=== PATIENT | male | born 1980 | race Caucasian/White ===

== ENCOUNTER 2018-12-30 15:26 | Emergency (ER) | payer OTHER ==
--- NOTE | 2018-12-30 18:14 | EDPHY ---
H & P Stated Complaint: cough/fever body aches Time Seen by Provider: 12/30/18 18:04 - Personal History Current Tetanus Diphtheria and Acellular Pertussis (TDAP): No - Medical/Surgical History Hx Asthma: No Hx Chronic Respiratory Disease: No Hx Diabetes: No Hx Cardiac Disease: No Hx Renal Disease: Yes Hx Cirrhosis: No Hx Alcoholism: No Hx HIV/AIDS: No Hx Splenectomy or Spleen Trauma: No Other PMH: appy l kidney removed - Social History Smoking Status: Current every day smoker Constitutional: Initial Vital Signs Temperature (C) 37.9 C 12/30/18 16:04 Heart Rate 112 H 12/30/18 16:04 Respiratory Rate 18 12/30/18 16:04 Blood Pressure 116/75 12/30/18 16:04 O2 Sat (%) 94 12/30/18 16:04 O2 Delivery Mode Room Air Allergies/Adverse Reactions: No Known Allergies Allergy (Unverified 12/30/18 16:03) Home Medications: Medication Instructions Recorded Ibuprofen [Motrin] 800 mg PO Q8 #20 tab 12/30/18 Oseltamivir Phosphate [Tamiflu 75 75 mg PO BID #10 cap 12/30/18 mg (*)] Medical Decision Making ED Course/Re-evaluation: CHIEF COMPLAINT: Flu-like symptoms HISTORY OF PRESENT ILLNESS: The patient is a 38 y/o male with a history of an appendectomy and left nephrectomy complaining of fever, cough, and body aches onset 2 days ago. Due to these symptoms he decided to present to the emergency department. No headache , lightheadedness, chest pain, heart palpitations, cough, abdominal pain, urinary or bowel complaints, numbness, paresthesias. REVIEW OF SYSTEMS: A 10 point review of systems was performed and is negative with the exception of the elements mentioned in the history of present illness. PHYSICAL EXAM: HR, BP, O2 Sat, RR. Temp noted General Appearance: Alert, well hydrated, appropriate, and non-toxic appearing. Head: Atraumatic without scalp tenderness or obvious injury Eyes: Pupils equal, round, reactive to light and accommodation, EOMI, no trauma , no injection. Ears: Clear bilaterally, no perforation, normal landmarks Nose: Atraumatic, no rhinorrhea, clear. Throat: There is no erythema or exudates, no lesions, normal tonsils, mucus membranes moist. Neck: Supple, 2+ carotid upstroke, nontender, no lymphadenopathy. Respiratory: No retractions, no distress, no wheezes, and no accessory muscle use. Lungs are clear to auscultation bilaterally. Cardiovascular: Regular rate and rhythm, no murmurs, rubs, or gallops. Bilateral carotid, radial, dorsalis pedis, and posterior tibial pulses intact. Good capillary refill all extremities. Gastrointestinal: Abdomen is soft, nontender, non-distended, no masses, no rebound, no guarding, no peritoneal signs. Musculoskeletal: Normal active ROM of all extremities, atraumatic. Neurological: Alert, appropriate, and interactive. The patient has normal DTRs and non-focal cranial nerves, motor, sensory, and cerebellar exam. Skin: No rashes, good turgor, no nodules on palpation. Past medical history: Denies Past surgical history: Appendectomy, left nephrectomy Family history: Denies Social history: Transient, single, not employed DIAGNOSTICS/PROCEDURES/CRITICAL CARE TIME: Not indicated. DIFFERENTIAL DIAGNOSIS: The differential diagnosis for the patient's fever included but was not limited to pneumonia, urinary tract infection, viral syndrome, meningitis, and sepsis. MEDICAL DECISION MAKING: The patient is a 38 y/o male with a history of an appendectomy and left nephrectomy presenting with fever, cough, and body aches onset 2 days ago. Patient has a normal physical exam. Patient's flu swab is positive for influenza A. I have prescribed him Tamiflu, an albuterol inhaler, and Motrin for his symptoms. Return precautions provided; patient is comfortable with this plan. - Data Points Laboratory Results: 12/30/18 16:06 Nasal Influenza A PCR FLU A DETECTED H (NEGATIVE) Nasal Influenza B PCR NEGATIVE FOR FLU B (NEGATIVE) Departure - Departure Disposition: Home, Routine, Self-Care Clinical Impression: Influenza A Condition: Good Instructions: Oseltamivir (By mouth), Influenza (ED) Additional Instructions: 1. Take Tamiflu as prescribed. 2. Use the inhaler as prescribed. 3. Use ibuprofen and Tylenol as needed for fever and body aches. 4. Follow up with your primary care physician within 72 hours for reevaluation. 5. Drink plenty of fluids. 6. Return to the emergency department immediately for high fever, severe headache or neck pain, difficulty breathing, abdominal pain, rash or other worsening of condition. Referrals: [facility],. [Clinic] - As per Instructions Prescriptions: Ibuprofen [Motrin] 800 mg PO Q8 #20 tab Oseltamivir Phosphate [Tamiflu 75 mg (*)] 75 mg PO BID #10 cap Report Scribed for: Tigre Drummond Report Scribed by: Ninfa Monet Date of Report: 12/30/18 Time of Report: 18:21
[2018-12-30] MEDS ORDERED: ALBUTEROL INH PREPACK MDI TAKEHOME ONE (18:15)
[2018-12-30] MEDS ORDERED: IBUPROFEN 800 MG TAB PO ONE ×2 (18:21)
[2018-12-30 18:24] VITALS: BP 125/72
[2018-12-30] MEDS ORDERED: ALBUTEROL 3 ML DEYVIAL IH ONE (18:27)
== END 2018-12-30 18:43 | disposition home or self-care (01) ==
DX: J10.1 Influenza due to other identified influenza virus with other respiratory manifestations (principal)
CPT/HCPCS: J7613